=== PATIENT | female | born 1935 | race Caucasian/White ===

== ENCOUNTER 2024-11-27 19:51 | Emergency (ER) | payer SELFPAY ==
[2024-11-27 20:01] VITALS: BP 176/80
[2024-11-27 20:26] LABS: % Basophils 0.7 % (0-2); % Eosinophils 1.5 % (0-6); % Immature Granulocytes 0.3 % (0-0.5); % Lymphocytes 25.1 % (20.5-51.1); % Monocytes 7.8 % (1.7-9.3); % Neutrophils 64.6 % (42.2-75.2); Absolute Eosinophils 0.1 10^3/uL (0-0.7); Absolute Lymphocytes 1.5 10^3/uL (1.2-3.4); Absolute Monocytes 0.5 10^3/uL (0.1-0.6); Absolute Neutrophils 3.9 10^3/uL (1.4-6.5); Hematocrit 42.9 % (37.0-47.0); Hemoglobin 14.5 g/dL (12.0-16.0); Mean Corp Hgb Conc. 33.8 g/dL (33.0-37.0); Mean Corpuscular Hgb 30.5 pg (27.0-31.0); Mean Corpuscular Volume 90.1 fL (81.0-99.0); Mean Platelet Volume 11.1 fL (7.4-10.4); Nucleated Red Blood Cells % 0 %; Platelet Count 212 10^3/uL (130-400); Red Blood Cell Count 4.76 10^6/uL (4.20-5.40); White Blood Cell Count 6.1 10^3/uL (4.8-10.8)
[2024-11-27 20:41] LABS: COVID-19 Antigen Negative (Negative)
[2024-11-27 20:45] LABS: ALT (SGPT) 14 U/L (0-35); AST (SGOT) 19 U/L (14-36); Albumin 3.7 g/dl (3.5-5.0); Alkaline Phosphatase 81 U/L (38-126); Blood Urea Nitrogen 12 mg/dl (7-17); Calcium 9.1 mg/dl (8.4-10.2); Carbon Dioxide 28 mmol/L (22-30); Chloride 103 mmol/L (98-107); Glucose 116 mg/dl (70-99); Lipase 179 U/L (23-300); Potassium 3.8 mmol/L (3.5-5.1); Sodium 135 mmol/L (135-145); Total Protein 6.2 g/dl (6.3-8.2); eGFR > 60.00
[2024-11-27] MEDS: ZOFRAN ODT (ORALLY DISINTEGRATING) 4 MG PO (22:01)
[2024-11-27 23:28] VITALS: BP 177/64
[2024-11-27 23:32] VITALS: BMI 27.4
[2024-11-28] MEDS: NSS 500 IV (00:08)
--- NOTE | 2024-11-28 00:35 | ED.GENMED ---
History of Present Illness
General
Chief Complaint: Abdominal Symptoms
Source: patient and interior plant caretaker
Exam Limitations: dementia
Time Seen by Provider: 11/27/24 23:40
Nursing documentation reviewed up to this point in time: agreed with
History of Present Illness
History of Present Illness:
89-year-old female with a past medical history of hyperlipidemia, hypothyroidism,distant history of ovarian cancer, mild dementia/memory issues who presents to the emergency room from [facility] where she lives with a 24-hour chef kitchen manager; presents
for evaluation of nausea and vomiting. According to chef kitchen manager patient has chronic dizziness as well as chronic nausea. Today patient had 3 episodes of vomiting which is unusual and was referred to the ER to be evaluated. Patient says that she
feels mildly lightheaded and she has nausea. She says she has some mild epigastric discomfort. She has not had any diarrhea according to visiting nurse. She denies any fever. Patient denies any headache or neck pain. No reported recent URI
symptoms.
Review of Systems
Review of Systems
Other source history: other (Caregiver)
All Other Systems: ROS reviewed and negative except as documented in HPI and ROS
Constitutional: Denies fever
EENT: Denies sore throat or runny nose
Respiratory: Denies cough or trouble breathing
Cardiac: Denies chest pain
ABD/GI: Reports abdominal pain, nausea and vomiting; Denies diarrhea
: Denies flank pain
Musculoskeletal: Denies neck pain or back pain
Neurological: Reports dizzy; Denies headache
Phy Exam
Physical Exam
Physical Exam:
General: Awake, alert, pleasant oriented x 2 which is baseline according to caregiver; no acute distress
Head: Normocephalic, atraumatic
Eyes: Conjunctiva normal, EOMI without nystagmus
Throat: Airway intact, mucous membranes slightly dry
Neck: Trachea midline, supple without meningismus
Lungs: Clear to auscultation bilaterally, no wheezing, rales, rhonchi
Heart: Regular rate and rhythm, no murmurs, gallops, or rubs
Abd: Soft, non distended, minimally tender in the epigastrium, small reducible local hernia
Neuro: No gross deficits
Extremities: No edema in extremities, equal pulses in all extremities
Scores
Heart Failure Risk
Heart Failure Risk Score: Not Applicable
Heart Score for Chest Pain Patients
STEMI patient?: Not applicable
Withdrawal Assessment of Alcohol
Withdrawal Assessment Completed?: Not applicable
Course
Orders/Labs/Results
Orders:
Orders
11/27/24 20:15
COVID-19 Antigen Urgent
Source: Nasal Swab
Complete Blood Count/With Diff Urgent
Influenza A+B Rapid Molecular Urgent
OMARI Source: Nasal Swab
Specimen Description:
11/27/24 20:16
Comprehensive Metabolic Panel Urgent
Lipase Urgent
11/27/24 22:00
Ondansetron Orally Disint [Zofran Odt (Orally Disintegrating)] 4 mg .ROUTE .STK-MED ONE
11/27/24 22:01
Ondansetron Orally Disint [Zofran Odt (Orally Disintegrating)] 4 mg PO NOW STA
11/27/24 23:48
0.9% Sodium Chloride 500 ml [Nss] 500 ml IV BOLUS
11/28/24 00:36
Electrocardiogram (*1) Urgent
Reason for Study: Abdominal Pain
EKG- Treatment ONCE
11/28/24 00:37
Add On- LAB Urgent
Tests Added?: troponin
Urinalysis Reflex To Culture Urgent
Date Specimen was Collected: 11/28/24
Time Specimen was Collected: 00:38
11/28/24 01:00
CT Abd/pelvis W Iv Cont Urgent
Reason For Exam: abd pain, N/V
11/28/24 01:23
Troponin I Urgent
11/28/24 02:16
Straight cath- Treatment ONCE
11/28/24 02:20
Pantoprazole [Protonix IV] 40 mg IV NOW STA
Abnormal Lab Results
11/27/24 11/27/24
20:15 20:16
MPV 11.1 H fL
(7.4-10.4)
Glucose 116 H mg/dl
(70-99)
Total Protein 6.2 L g/dl
(6.3-8.2)
11/27/24 20:15
11/27/24 20:16
Vital Signs
Initial and Last Documented VS:
Initial Vital Signs
Temp Pulse Resp BP Pulse Ox
36.9 C 59 16 176/80 99
11/27/24 20:01 11/27/24 20:01 11/27/24 20:01 11/27/24 20:01 11/27/24 20:01
Last Documented Vital Signs
Temp Pulse Resp BP Pulse Ox
36.9 C 52 16 179/70 96
11/28/24 00:00 11/28/24 01:46 11/28/24 01:46 11/28/24 01:46 11/28/24 01:46
MDM/Problems Addressed
Differential Diagnosis Includes:
Gastritis, GERD, pancreatitis, cholelithiasis/cholecystitis, bowel obstruction, abdominal malignancy, viral syndrome, anginal equivalent, vertigo
MDM/Problems Addressed:
89-year-old female presents for evaluation of nausea and vomiting also has chronic mild dizziness. Hypertensive otherwise normal vitals. Physical exam as above. IV placed in triage and labs sent off including a CBC and a CMP which were
unremarkable, lipase normal. COVID and flu negative. Check an EKG and a troponin. Check CT of the abdomen pelvis. Provide fluids. She was given Zofran no additional vomiting since. Will monitor closely reassess after the above.
EKG shows sinus rhythm, troponin negative x 1 and with constant symptoms over 24 hours this is sufficient to rule out acute CA. CT abdomen pelvis shows no acute abnormalities to account for patient's symptoms. Clinical reassessment patient has not
had additional vomiting tolerating p.o. fluids here. Suspect likely gastritis. I think she is stable for discharge; can prescribe PPI and Zofran, follow-up with PCP as an outpatient�at this point no clear indication for admission to the hospital.
Spoke about return precautions all questions answered.
Chronic conditions affecting care:
Memory loss/dementia
Acute Exacerbation and/or Progression of Chronic Illness:
Acutely hypertensive
Acute Exacerbation and/or Progression of Chronic Illness: HTN
*Radiology
Radiology exam reviewed: radiology read reviewed
*Pulse Oximetry
Patient hypoxic: no
*Critical Care Note
Total Time (30-74mins, 75-104mins- exclusive of procedures): Not Applicable
Data Reviewed
Source: patient, interior plant caretaker and ambulance crew
ED Attending Note
-
Portions of this chart may have been created with voice recognition software.� Occasional wrong word or��sound alike� substitutions may have occurred due to the inherent limitations of voice recognition software.
Discharge Plan
Departure
Patient Disposition: Home (Routine Discharge)
Date of Disposition: 11/28/24
Time of Disposition: 02:25
Patient with high blood pressure during this ER visit?: Yes
Discharge Problem:
Nausea & vomiting
Instructions: [place] Diet, Nausea and Vomiting, Adult (DC)
Prescriptions:
New
ondansetron 4 mg tablet,disintegrating
4 mg PO TIDPRN PRN (Reason: nausea/vomiting) Qty: 10 0RF
pantoprazole 40 mg tablet,delayed release (DR/EC)
40 mg PO DAILY Qty: 14 0RF
No Action
latanoprost 0.005 % Drops
1 drp OPHTHALMIC (EYE) QPM
Rx Instructions:
both eyes
cyanocobalamin (vitamin B-12) 1,000 mcg Tablet Extended Release
1,000 mcg PO DAILY
simvastatin 40 mg Tablet
40 mg PO HS
levothyroxine [Synthroid] 25 mcg Tablet
25 mcg PO DAILY
dorzolamide-timolol 22.3-6.8 mg/mL Drops
1 drp OPHTHALMIC (EYE) DAILY
Rx Instructions:
both eyes
neomycin-polymyxin B-dexameth [Maxitrol] 3.5 mg/g-10,000 unit/g-0.1 % Ointment
1 applic OPHTHALMIC (EYE) DAILY PRN (Reason: per director outpatient services)
Rx Instructions:
per director outpatient services
escitalopram oxalate 10 mg Tablet
10 mg PO DAILY
PreserVision AREDS 2 Plus MV 200 mcg-15 mcg- 5 mg-1 mg Capsule
1 cap PO DAILY
Referrals:
Kavya Heath MD [Family Provider] - Follow up in 2-3 days
Activity Restrictions/Additional Instructions:
Thank you for visiting the Emergency Department at [facility].
1. Please schedule a follow up appointment as directed. Call first thing tomorrow morning to make an appointment.
2. If indicated, please take your medications as instructed and indicated on discharge paperwork.
3. If any of your symptoms do not improve, or persist, or become more severe within 6-12 hours, please return to the emergency department for further care.
4. Please return to the emergency department if you develop a headache, neck pain/stiffness, fever greater than 100.4F, chest pain, shortness of breath, persistent nausea, vomiting, slurred speech, difficulty walking, numbness/tingling, weakness,
signs of infection or any other symptoms that are worrisome to you.
Please call [phone] if you have any questions.
Interventions
Interventions:
*Risk Screen - Suicide Last Done: 11/27/24 20:01
*General Assessment Last Done: 11/27/24 20:01
*Neglect/Abuse Screening Last Done: 11/27/24 20:01
ED- Fall Risk Assessment Last Done: 11/28/24 00:15
*ED COVID-19 Vaccine History Last Done: 11/27/24 20:01
YF-Lnrakd-Fhjujrtpwa Assessment Last Done: 11/28/24 00:15
Discharge Date and Time
Print Language: TAJIK
[2024-11-28 01:46] VITALS: BP 179/70
[2024-11-28 02:22] LABS: Troponin I 0.013 ng/ml
[2024-11-28] MEDS: PROTONIX IV 40 MG IV (02:26)
[2024-11-28 02:36] VITALS: BP 163/68
[2024-11-28 03:38] LABS: Urine Albumin 2+ (Neg - Trace); Urine Bilirubin Negative (Negative); Urine Character Slightly Cloudy (Clear); Urine Glucose Negative (Negative); Urine Ketone Negative (Negative); Urine Leukocyte 2+ (Negative); Urine Nitrite Negative (Negative); Urine Occult Blood 4+ (Negative); Urine Urobilinogen Negative (Neg - 1+)
[2024-11-28 03:39] LABS: Urine Color Yellow
[2024-11-28 04:06] LABS: Urine Squamous Cell 16-20 /LPF (Few)
[2024-11-28 04:07] LABS: Urine Bacteria Moderate (Negative); Urine Red Blood Cell 26-30 /HPF (0-2); Urine White Cell 16-20 /HPF (0-5)
--- NOTE | 2024-11-28 10:26 | W.PN.UPDATE ---
Update Note
Progress Note Update
This patient came to the ER yesterday for abdominal pain. She had a CT scan of the abdomen and pelvis which revealed 2 concerning liver lesion in that were initally reported as benign hemangiomas. Recommend MRI for further evaluation. I did leave
message with her PCPs office and faxed report.
== END 2024-11-28 03:20 | disposition home or self-care (01) ==
LOC: EMR 19:51
PROVIDERS: Emergency Medicine; EMERGENCY PHYSICIAN Emergency Medicine; FAMILY PHYSICIAN Internal Medicine Geriatric Medicine
DX: R11.2 Nausea with vomiting, unspecified (principal); E78.5 Hyperlipidemia, unspecified; E03.9 Hypothyroidism, unspecified; F03.A0 Unspecified dementia, mild, without behavioral disturbance, psychotic disturbance, mood disturbance, and anxiety; I10 Essential (primary) hypertension; Z85.43 Personal history of malignant neoplasm of ovary
CPT/HCPCS: 99284; 96374; 96361; 74177; 80053; 81003; 81015; 83690; 84484; 85025; 87086; 87502; 87811; 93005; Q9967

== ENCOUNTER 2024-11-29 15:39 | Emergency (ER) | payer SELFPAY ==
[2024-11-29 15:52] VITALS: BP 165/78
--- NOTE | 2024-11-29 20:46 | ED.GENMED ---
History of Present Illness
<Samantha Hunt PA-C - Last Filed: 11/30/24 06:26>
General
Chief Complaint: Bowel Problem
Source: patient and records
Exam Limitations: none
Time Seen by Provider: 11/29/24 20:32
History of Present Illness
History of Present Illness:
89yoF with a history of hyperlipidemia, hypothyroidism, remote history of ovarian cancer, and mild dementia presenting via EMS for evaluation of possible constipation. Patient is a resident at [facility] and arrives with a caregiver. Patient
has been having intermittent vomiting over the past 3 days. She was seen in the ED yesterday for the symptoms. She had a CT abdomen performed which was negative for acute findings. There was apparent concern for continued vomiting although
patient states she has not vomited since yesterday. Last bowel movement was 2 days ago. Patient states she is constipated because she has not been eating much. Caregiver reports that she was complaining of dizziness in the waiting room. She denies
any abdominal pain, rectal pain, chest pain, shortness of breath, fevers, difficulty urinating.
Phy Exam
<Samantha Hunt PA-C - Last Filed: 11/30/24 06:26>
General Physical Exam
General Presentation: well appearing and no apparent distress
General age: appears stated age
General Skin: warm and dry
General Habitus: normal
General Mental: alert
ENT Exam
ENT Exam: normocephalic
Pulmonary Exam
Pulmonary Exam: no respiratory distress
Gastrointestinal Exam
Gastrointestinal Exam: non tender, soft and non distended
Stool: other (No hard stool palpated on digital rectal exam)
Neurological Exam
Neurological Exam: alert
Skin Exam
Skin Exam: normal color and warm/dry
Psychiatric Exam
Psychiatric Exam: normal mood/affect
Course
<Samantha Hunt PA-C - Last Filed: 11/30/24 06:26>
Orders/Labs/Results
Orders:
Orders
11/29/24 15:59
Obstruct Series W/PA Chest [CR Obstruct Series W/pa Chest] Urgent
Comment:
Reason For Exam: consrtipation
11/29/24 20:39
0.9% Sodium Chloride 500 ml [Nss] 500 ml IV BOLUS
Ondansetron Injectable [Zofran] 4 mg IV NOW STA
11/29/24 20:40
Electrocardiogram (*1) Urgent
Reason for Study: Vertigo / Dizzy
EKG- Treatment ONCE
11/29/24 21:49
Complete Blood Count/With Diff Urgent
Comprehensive Metabolic Panel Urgent
Magnesium Urgent
Comment: ADD ON
Troponin I Urgent
11/29/24 22:04
Add On- LAB Urgent
Tests Added?: magnesium
11/29/24 22:[address] Non Medication Order As Directed
Physician Order: PO challenge
Above order entered?: Yes
Abnormal Lab Results
11/29/24
21:49
MPV 11.0 H fL
(7.4-10.4)
Lymphocytes % 19.0 L %
(20.5-51.1)
Sodium 133 L mmol/L
(135-145)
Glucose 112 H mg/dl
(70-99)
Total Protein 6.2 L g/dl
(6.3-8.2)
11/29/24 21:49
11/29/24 21:49
Vital Signs
Initial and Last Documented VS:
Initial Vital Signs
Temp Pulse Resp BP Pulse Ox
98.3 F 69 16 165/78 97
11/29/24 15:52 11/29/24 15:52 11/29/24 15:52 11/29/24 15:52 11/29/24 15:52
Last Documented Vital Signs
Temp Pulse Resp BP Pulse Ox
98.3 F 65 17 172/69 100
11/29/24 15:52 11/29/24 22:08 11/29/24 22:04 11/29/24 22:03 11/29/24 22:08
<Talia Garcia PA-C - Last Filed: 11/29/24 23:06>
Orders/Labs/Results
Orders:
Orders
11/29/24 15:59
Obstruct Series W/PA Chest [CR Obstruct Series W/pa Chest] Urgent
Comment:
Reason For Exam: consrtipation
11/29/24 20:39
0.9% Sodium Chloride 500 ml [Nss] 500 ml IV BOLUS
Ondansetron Injectable [Zofran] 4 mg IV NOW STA
11/29/24 20:40
Electrocardiogram (*1) Urgent
Reason for Study: Vertigo / Dizzy
EKG- Treatment ONCE
11/29/24 21:49
Complete Blood Count/With Diff Urgent
Comprehensive Metabolic Panel Urgent
Magnesium Urgent
Comment: ADD ON
Troponin I Urgent
11/29/24 22:04
Add On- LAB Urgent
Tests Added?: magnesium
11/29/24 22:[address] Non Medication Order As Directed
Physician Order: PO challenge
Above order entered?: Yes
Abnormal Lab Results
11/29/24
21:49
MPV 11.0 H fL
(7.4-10.4)
Lymphocytes % 19.0 L %
(20.5-51.1)
Sodium 133 L mmol/L
(135-145)
Glucose 112 H mg/dl
(70-99)
Total Protein 6.2 L g/dl
(6.3-8.2)
11/29/24 21:49
11/29/24 21:49
Vital Signs
Initial and Last Documented VS:
Initial Vital Signs
Temp Pulse Resp BP Pulse Ox
98.3 F 69 16 165/78 97
11/29/24 15:52 11/29/24 15:52 11/29/24 15:52 11/29/24 15:52 11/29/24 15:52
Last Documented Vital Signs
Temp Pulse Resp BP Pulse Ox
98.3 F 65 17 172/69 100
11/29/24 15:52 11/29/24 22:08 11/29/24 22:04 11/29/24 22:03 11/29/24 22:08
<Samantha Hunt PA-C - Last Filed: 11/30/24 06:26>
MDM/Problems Addressed
Differential Diagnosis Includes:
89yoF here with intermittent vomiting x 3 days although has not vomited since yesterday. Triage note documents constipation although patient does not truly complain of this. Last BM 2 days ago and she states this is because she is not eating much.
She has no specific complaints on initial exam. Seen in the ED yesterday for the same and had a complete workup. Caregiver at bedside not very helpful as this is her first day with the patient. She is mildly hypertensive with otherwise normal
vitals. She is well appearing in no distress. Abdominal exam is benign. No hard stool palpated on rectal exam. Differential diagnosis includes but is not limited to: gastroenteritis, constipation, dehydration
Initial ED plan: KUB obtained in triage which shows mild constipation without evidence of obstruction. CT abdomen from yesterday reviewed. Will check CBC, CMP, troponin, and EKG. IV Zofran and fluid bolus.
Final assessment: EKG shows NSR with a QTc of 498. Patient received Zofran prior to EKG. Sodium 133. Remainder of labs unremarkable including normal magnesium, white count, renal function, and troponin. On reassessment, patient reports nausea but is
declining additional medications. Patient signed out to Kath Garcia PA-C prior to PO challenge. Final disposition pending.
<Samantha Hunt PA-C - Last Filed: 11/30/24 06:26>
*EKG
Interpreted by ED Provider?: Yes
EKG Intrepretation Date: 11/29/24
Heart Rate: 60
Rate: normal
Rhythm: sinus
[place]: normal axis
Interval: long QT (498)
QRS Pattern: normal QRS
Ischemia: no ischemia
<Talia Garcia PA-C - Last Filed: 11/29/24 23:06>
*Critical Care Note
Total Time (30-74mins, 75-104mins- exclusive of procedures): Not Applicable
<Talia Garcia PA-C - Last Filed: 11/29/24 23:06>
Update Note
Update Note:
Update 11:06 PM: Received patient in signout. Patient tolerated p.o. challenge without vomiting. Ambulating without difficulty. Patient will be discharged home.
ED Attending Note
<Samantha Hunt PA-C - Last Filed: 11/30/24 06:26>
-
Portions of this chart may have been created with voice recognition software.� Occasional wrong word or��sound alike� substitutions may have occurred due to the inherent limitations of voice recognition software.
Discharge Plan
Departure
Patient Disposition: Group Home/SNF
Discharge Problem:
Nausea and vomiting
Instructions: Nausea and Vomiting, Adult (DC)
Prescriptions:
No Action
latanoprost 0.005 % Drops
1 drp OPHTHALMIC (EYE) QPM
Rx Instructions:
both eyes
cyanocobalamin (vitamin B-12) 1,000 mcg Tablet Extended Release
1,000 mcg PO DAILY
simvastatin 40 mg Tablet
40 mg PO HS
levothyroxine [Synthroid] 25 mcg Tablet
25 mcg PO DAILY
dorzolamide-timolol 22.3-6.8 mg/mL Drops
1 drp OPHTHALMIC (EYE) DAILY
Rx Instructions:
both eyes
neomycin-polymyxin B-dexameth [Maxitrol] 3.5 mg/g-10,000 unit/g-0.1 % Ointment
1 applic OPHTHALMIC (EYE) DAILY PRN (Reason: per garbage man)
Rx Instructions:
per garbage man
escitalopram oxalate 10 mg Tablet
10 mg PO DAILY
PreserVision AREDS 2 Plus MV 200 mcg-15 mcg- 5 mg-1 mg Capsule
1 cap PO DAILY
ondansetron 4 mg tablet,disintegrating
4 mg PO TIDPRN PRN (Reason: nausea/vomiting) Qty: 10 0RF
pantoprazole 40 mg tablet,delayed release (DR/EC)
40 mg PO DAILY Qty: 14 0RF
Referrals:
Kavya Heath MD [Family Provider] -
Activity Restrictions/Additional Instructions:
Drink plenty of fluids and hydrate. Eat a bland diet (bananas, rice, applesauce, and toast).
Please follow-up with your family doctor. Return to the ER with any new or worsening symptoms.
Interventions
Interventions:
*Risk Screen - Suicide Last Done: 11/29/24 15:52
*General Assessment Last Done: 11/29/24 21:17
*Neglect/Abuse Screening Last Done: 11/29/24 15:52
*ED COVID-19 Vaccine History Last Done: 11/29/24 21:17
*Nursing Disposition Last Done: 11/30/24 00:00
JY-Fkmcdk-Dufcucbqlq Assessment Last Done: 11/29/24 21:17
Discharge Date and Time
Discharge Date/Time: 11/30/24 00:00
Print Language: HEBREW
[2024-11-29] MEDS: ZOFRAN 4 MG IV (21:50)
[2024-11-29] MEDS: NSS 500 IV (21:53)
[2024-11-29 22:03] VITALS: BP 172/69
[2024-11-29 22:04] LABS: % Basophils 0.3 % (0-2); % Eosinophils 0.1 % (0-6); % Immature Granulocytes 0.3 % (0-0.5); % Monocytes 6.9 % (1.7-9.3); % Neutrophils 73.4 % (42.2-75.2); Absolute Lymphocytes 1.5 10^3/uL (1.2-3.4); Absolute Monocytes 0.6 10^3/uL (0.1-0.6); Absolute Neutrophils 5.9 10^3/uL (1.4-6.5); Hematocrit 43.3 % (37.0-47.0); Hemoglobin 14.9 g/dL (12.0-16.0); Mean Corp Hgb Conc. 34.4 g/dL (33.0-37.0); Mean Corpuscular Hgb 30.4 pg (27.0-31.0); Mean Corpuscular Volume 88.4 fL (81.0-99.0); Nucleated Red Blood Cells % 0 %; Platelet Count 234 10^3/uL (130-400); Red Cell Dist. Width 12.9 % (11.5-14.5)
[2024-11-29 22:23] LABS: ALT (SGPT) 14 U/L (0-35); AST (SGOT) 19 U/L (14-36); Albumin 3.8 g/dl (3.5-5.0); Alkaline Phosphatase 79 U/L (38-126); Blood Urea Nitrogen 12 mg/dl (7-17); Calcium 9.2 mg/dl (8.4-10.2); Carbon Dioxide 27 mmol/L (22-30); Chloride 99 mmol/L (98-107); Glucose 112 mg/dl (70-99); Potassium 3.9 mmol/L (3.5-5.1); Sodium 133 mmol/L (135-145); Total Bilirubin 1.3 mg/dl (0.2-1.3); Total Protein 6.2 g/dl (6.3-8.2); eGFR > 60.00
[2024-11-29 22:26] LABS: Troponin I < 0.012 ng/ml
== END 2024-11-30 ==
LOC: EMR 15:39
PROVIDERS: Physician Assistant; EMERGENCY PHYSICIAN Student in an Organized Health Care Education/Training Program; FAMILY PHYSICIAN Internal Medicine Geriatric Medicine
DX: R11.2 Nausea with vomiting, unspecified (principal); E78.00 Pure hypercholesterolemia, unspecified; E03.9 Hypothyroidism, unspecified; F03.A0 Unspecified dementia, mild, without behavioral disturbance, psychotic disturbance, mood disturbance, and anxiety; Z85.43 Personal history of malignant neoplasm of ovary
CPT/HCPCS: 99283; 96374; 96361; 74022; 80053; 83735; 84484; 85025; 93005

== ENCOUNTER 2025-02-18 12:19 | Emergency (ER) | payer MEDICARE, SELFPAY ==
[2025-02-18 12:33] VITALS: BP 126/80
[2025-02-18 13:02] LABS: % Basophils 0.5 % (0-2); % Eosinophils 0.8 % (0-6); % Immature Granulocytes 0.2 % (0-0.5); % Lymphocytes 21.3 % (20.5-51.1); % Monocytes 6.9 % (1.7-9.3); % Neutrophils 70.3 % (42.2-75.2); Absolute Eosinophils 0.1 10^3/uL (0-0.7); Absolute Lymphocytes 1.4 10^3/uL (1.2-3.4); Absolute Monocytes 0.4 10^3/uL (0.1-0.6); Absolute Neutrophils 4.5 10^3/uL (1.4-6.5); Hematocrit 40.8 % (37.0-47.0); Hemoglobin 13.9 g/dL (12.0-16.0); Mean Corp Hgb Conc. 34.1 g/dL (33.0-37.0); Mean Corpuscular Hgb 30.9 pg (27.0-31.0); Mean Corpuscular Volume 90.7 fL (81.0-99.0); Mean Platelet Volume 10.9 fL (7.4-10.4); Nucleated Red Blood Cells % 0 %; Platelet Count 204 10^3/uL (130-400); Red Cell Dist. Width 13.5 % (11.5-14.5); White Blood Cell Count 6.4 10^3/uL (4.8-10.8)
[2025-02-18 13:28] LABS: ALT (SGPT) 14 U/L (0-35); AST (SGOT) 22 U/L (14-36); Albumin 4.3 g/dl (3.5-5.0); Alkaline Phosphatase 73 U/L (38-126); Blood Urea Nitrogen 13 mg/dl (7-17); Calcium 9.2 mg/dl (8.4-10.2); Carbon Dioxide 27 mmol/L (22-30); Chloride 106 mmol/L (98-107); Glucose 96 mg/dl (70-99); Potassium 4.4 mmol/L (3.5-5.1); Sodium 141 mmol/L (135-145); Total Bilirubin 0.9 mg/dl (0.2-1.3); Total Protein 6.8 g/dl (6.3-8.2); eGFR > 60.00
[2025-02-18 13:47] LABS: Urine Albumin 2+ (Neg - Trace); Urine Bilirubin Negative (Negative); Urine Character Clear (Clear); Urine Color Yellow; Urine Glucose Negative (Negative); Urine Ketone 3+ (Negative); Urine Leukocyte 1+ (Negative); Urine Nitrite Negative (Negative); Urine Occult Blood 4+ (Negative); Urine Specific Gravity 1.025 (<1.030); Urine Urobilinogen Negative (Neg - 1+)
--- NOTE | 2025-02-18 14:25 | ED.GENMED ---
History of Present Illness
General
Chief Complaint: Change in Mental Status
Source: patient and [facility] records
Time Seen by Provider: 02/18/25 14:07
History of Present Illness
History of Present Illness:
89-year-old female brought to the emergency room by ambulance from [facility]. Patient was refusing her medications and was agitated. This prompted her to be sent to the emergency room for evaluation. Patient is calm here but states
that she believes that her friend dumped her at a new facility and she cannot understand why. She does not like it there. She offers no medical complaints.
Phy Exam
Physical Exam
Physical Exam:
General: Awake, Alert, Oriented X person and time. She understands she is at a hospital. no acute distress.
Vitals: unremarkable
Head: Atraumatic
Eyes: Pupils equal, EOMI
Throat: Airway intact, no exudates
Neck: Trachea midline
Lungs: Clear and equal b/l
Heart: Regular rate, no murmurs
Abd: Soft, Nontender, No pulsatile mass
Neuro: Nonfocal
Skin: Warm, dry, no rash
Extremities: pulses equal b/l, no edema
Course
Orders/Labs/Results
Orders:
Orders
02/18/25 12:56
Complete Blood Count/With Diff Urgent
Comprehensive Metabolic Panel Urgent
02/18/25 13:27
Urinalysis Reflex To Culture Urgent
Date Specimen was Collected: 02/18/25
Time Specimen was Collected: 12:43
Urine Microscopic Reflex Cult Urgent
Urine Culture Urgent
OMARI Source: U
Specimen Description:
Date Specimen was Collected: 02/18/25
Time Specimen was Collected: 12:43
02/18/25 14:24
Escitalopram Oxalate [Lexapro] 5 mg PO NOW STA
02/18/25 14:25
CT Head W/o Iv Contrast Urgent
Comment:
Reason For Exam: agitation
02/18/25 17:22
Risperidone [Risperdal] 0.5 mg PO NOW STA
Abnormal Lab Results
02/18/25 02/18/25
12:56 13:27
MPV 10.9 H fL
(7.4-10.4)
Urine Ketones 3+ A
(Negative)
Ur Occult Blood Reflex 4+ A
(Negative)
Leukocyte Esterase Rfl 1+ A
(Negative)
Urine RBC 50-60 A /HPF
(0-2)
Urine Albumin (Reflex) 2+ A
(Neg - Trace)
02/18/25 12:56
02/18/25 12:56
Vital Signs
Initial and Last Documented VS:
Initial Vital Signs
Temp Pulse Resp BP Pulse Ox
98.4 F 72 18 126/80 96
02/18/25 12:33 02/18/25 12:33 02/18/25 12:33 02/18/25 12:33 02/18/25 12:33
Last Documented Vital Signs
Temp Pulse Resp BP Pulse Ox
98.4 F 72 18 126/80 96
02/18/25 12:33 02/18/25 12:33 02/18/25 12:33 02/18/25 12:33 02/18/25 12:33
MDM/Problems Addressed
Differential Diagnosis Includes:
Dementia with agitation, UTI, electrolyte abnormality
MDM/Problems Addressed:
Patient presents with essentially agitation at her facility. Here she is calm. She took medications for us here. There is no physical exam findings or lab findings to suggest an unstable problem. Patient a CT of her head which showed the
presence of a relatively large meningioma. I discussed this finding with Dr. Tasia Zhang is on-call for neurosurgery. Given the patient's age and diagnosis of dementia she is not a surgical candidate. I inquired about steroids as they describe some
vasogenic edema however he did not recommend this be started. Patient can follow-up as an outpatient.
*Radiology
Radiology exam reviewed: radiology read reviewed
*Pulse Oximetry
Patient hypoxic: no
*Critical Care Note
Total Time (30-74mins, 75-104mins- exclusive of procedures): Not Applicable
ED Attending Note
-
Portions of this chart may have been created with voice recognition software.� Occasional wrong word or��sound alike� substitutions may have occurred due to the inherent limitations of voice recognition software.
Discharge Plan
Departure
Patient Disposition: Longterm/SNF
Date of Disposition: 02/18/25
Time of Disposition: 17:07
Condition: Good
Discharge Problem:
Dementia with agitation, Meningioma
Prescriptions:
New
risperidone [Risperdal] 0.5 mg tablet
0.5 mg PO HS Qty: 10 0RF
No Action
latanoprost 0.005 % Drops
1 drp OPHTHALMIC (EYE) QPM
Rx Instructions:
both eyes
cyanocobalamin (vitamin B-12) 1,000 mcg Tablet Extended Release
1,000 mcg PO DAILY
simvastatin 40 mg Tablet
40 mg PO HS
levothyroxine [Synthroid] 25 mcg Tablet
25 mcg PO DAILY
dorzolamide-timolol 22.3-6.8 mg/mL Drops
1 drp OPHTHALMIC (EYE) DAILY
Rx Instructions:
both eyes
neomycin-polymyxin B-dexameth [Maxitrol] 3.5 mg/g-10,000 unit/g-0.1 % Ointment
1 applic OPHTHALMIC (EYE) DAILY PRN (Reason: per svp operations)
Rx Instructions:
per [employer]
escitalopram oxalate 10 mg Tablet
10 mg PO DAILY
PreserVision AREDS 2 Plus MV 200 mcg-15 mcg- 5 mg-1 mg Capsule
1 cap PO DAILY
ondansetron 4 mg tablet,disintegrating
4 mg PO TIDPRN PRN (Reason: nausea/vomiting) Qty: 10 0RF
pantoprazole 40 mg tablet,delayed release (DR/EC)
40 mg PO DAILY Qty: 14 0RF
Referrals:
Alina Moreno, DO [Family Provider] -
Interventions
Interventions:
*Risk Screen - Suicide Last Done: 02/18/25 12:33
*General Assessment Last Done: 02/18/25 12:33
*Neglect/Abuse Screening Last Done: 02/18/25 12:42
*ED- Fall Risk Assessment Last Done: 02/18/25 17:51
*ED COVID-19 Vaccine History Last Done: 02/18/25 17:51
*Nursing Disposition Last Done: 02/18/25 17:51
ED- Neurological Assessment Last Done: 02/18/25 17:21
Discharge Date and Time
Discharge Date/Time: 02/18/25 17:52
Print Language: KAZAKH
[2025-02-18 14:39] LABS: Urine Mucus Many; Urine Squamous Cell 0-2 /LPF (Few); Urine Urothelial Cell 0-2 /LPF (FEW)
[2025-02-18 14:41] LABS: Urine Amorphous Seen; Urine Red Blood Cell 50-60 /HPF (0-2)
[2025-02-18 14:42] LABS: Urine White Cell 0-2 /HPF (0-5)
[2025-02-18] MEDS: LEXAPRO 5 MG PO (15:09)
== END 2025-02-18 17:52 ==
LOC: EMR 12:19
PROVIDERS: EMERGENCY PHYSICIAN Emergency Medicine; FAMILY PHYSICIAN Internal Medicine
DX: F03.911 Unspecified dementia, unspecified severity, with agitation (principal); D32.9 Benign neoplasm of meninges, unspecified
CPT/HCPCS: 99284; 70450; 80053; 81003; 81015; 85025; 87086

== ENCOUNTER 2025-02-28 20:34 | Emergency (ER) | payer MEDICARE, SELFPAY ==
[2025-02-28 20:46] VITALS: BP 158/69
--- NOTE | 2025-02-28 23:20 | ED.GENMED ---
History of Present Illness
General
Chief Complaint: Crisis Evaluation
Source: patient and police
Time Seen by Provider: 02/28/25 22:58
History of Present Illness
History of Present Illness:
89-year-old female brought to the emergency room via ambulance after she was found with a plastic bag over her head and with the staff described as a suicide attempt. Patient was recently admitted to a custodial/memory care unit. She is unhappy
there. Today she was expressing her dismay about being there and ultimately ended up in a barricade situation. She placed a plastic bag over her head per police. No loss of consciousness with this event. Patient was seen here by myself 10 days
ago. At that time I had discussed the patient's presentation with her relative Pal[place]. Patient has evidently had a long history of psychiatric illness and has alienated family members. Evidently a friend or acquaintance who the patient was living
with ultimately had her placed in this facility. Currently the patient offers no complaints other than not wanting to live at the facility she now lives at. Patient denies this being an actual suicide attempt but states she was just trying to
scare the staff and make appointment.
Phy Exam
Physical Exam
Physical Exam:
General: Awake, Alert, Oriented X3. No acute distress.
Vitals: unremarkable
Head: Atraumatic
Eyes: Pupils equal, EOMI
Throat: Airway intact, no exudates
Neck: Trachea midline
Lungs: Clear and equal b/l
Heart: Regular rate, no murmurs
Abd: Soft, Nontender, No pulsatile mass
Neuro: Nonfocal
Skin: Warm, dry, no rash
Extremities: pulses equal b/l, no edema
Course
Orders/Labs/Results
Orders:
Orders
02/28/25 20:45
Crisis Consult Urgent
Reason for Consult: tried to commit suicide
02/28/25 23:22
Basic Metabolic Panel Urgent
Complete Blood Count/With Diff Urgent
02/28/25 23:52
Risperidone [Risperdal] 1 mg PO NOW STA
02/28/25 23:55
Dorzolamide HCl [Trusopt 2% Ophthalmic Solution] See Dose Instructions OPHTH NOW STA
Timolol Maleate 0.5% [Timoptic 0.5% Ophthalmic Solution] See Dose Instructions OPHTH NOW STA
Abnormal Lab Results
02/28/25
23:22
MCHC 31.8 L g/dL
(33.0-37.0)
MPV 11.1 H fL
(7.4-10.4)
02/28/25 23:22
Vital Signs
Initial and Last Documented VS:
Initial Vital Signs
Pulse Resp BP Pulse Ox
64 18 158/69 97
02/28/25 20:46 02/28/25 20:46 02/28/25 20:46 02/28/25 20:46
Last Documented Vital Signs
Pulse Resp BP Pulse Ox
64 18 158/69 97
02/28/25 20:46 02/28/25 20:46 02/28/25 20:46 02/28/25 20:46
ED Attending Note
-
Portions of this chart may have been created with voice recognition software.� Occasional wrong word or��sound alike� substitutions may have occurred due to the inherent limitations of voice recognition software.
Discharge Plan
Departure
Patient Disposition: Psych Facility
Date of Disposition: 02/28/25
Time of Disposition: 23:59
Patient Status:: 302
Condition: Fair
Discharge Problem:
Depression, Suicide attempt
Prescriptions:
No Action
latanoprost 0.005 % Drops
1 drp OPHTHALMIC (EYE) QPM
Rx Instructions:
both eyes
cyanocobalamin (vitamin B-12) 1,000 mcg Tablet Extended Release
1,000 mcg PO DAILY
simvastatin 40 mg Tablet
40 mg PO HS
levothyroxine [Synthroid] 25 mcg Tablet
25 mcg PO DAILY
dorzolamide-timolol 22.3-6.8 mg/mL Drops
1 drp OPHTHALMIC (EYE) DAILY
Rx Instructions:
both eyes
neomycin-polymyxin B-dexameth [Maxitrol] 3.5 mg/g-10,000 unit/g-0.1 % Ointment
1 applic OPHTHALMIC (EYE) DAILY PRN (Reason: per gem carver)
Rx Instructions:
per gem carver
escitalopram oxalate 10 mg Tablet
10 mg PO DAILY
PreserVision AREDS 2 Plus MV 200 mcg-15 mcg- 5 mg-1 mg Capsule
1 cap PO DAILY
ondansetron 4 mg tablet,disintegrating
4 mg PO TIDPRN PRN (Reason: nausea/vomiting) Qty: 10 0RF
pantoprazole 40 mg tablet,delayed release (DR/EC)
40 mg PO DAILY Qty: 14 0RF
risperidone [Risperdal] 0.5 mg tablet
0.5 mg PO HS Qty: 10 0RF
Referrals:
Alina Moreno DO [Family Provider, Internal Medicine]
Interventions
Interventions:
*Risk Screen - Suicide Last Done: 02/28/25 20:38
*General Assessment Last Done: 02/28/25 20:38
*Neglect/Abuse Screening Last Done: 02/28/25 20:38
*ED- Fall Risk Assessment Last Done: 02/28/25 20:38
*ED COVID-19 Vaccine History Last Done: 02/28/25 20:38
ED-Psychological Assessment Last Done: 02/28/25 20:38
Discharge Date and Time
Print Language: STATELESS
[2025-02-28 23:54] LABS: % Basophils 0.6 % (0-2); % Eosinophils 2.4 % (0-6); % Immature Granulocytes 0.2 % (0-0.5); % Lymphocytes 33.3 % (20.5-51.1); % Monocytes 8.4 % (1.7-9.3); % Neutrophils 55.1 % (42.2-75.2); Absolute Eosinophils 0.2 10^3/uL (0-0.7); Absolute Lymphocytes 2.1 10^3/uL (1.2-3.4); Absolute Monocytes 0.5 10^3/uL (0.1-0.6); Absolute Neutrophils 3.5 10^3/uL (1.4-6.5); Hematocrit 40.3 % (37.0-47.0); Hemoglobin 12.8 g/dL (12.0-16.0); Mean Corp Hgb Conc. 31.8 g/dL (33.0-37.0); Mean Corpuscular Hgb 30.1 pg (27.0-31.0); Mean Corpuscular Volume 94.8 fL (81.0-99.0); Mean Platelet Volume 11.1 fL (7.4-10.4); Nucleated Red Blood Cells % 0 %; Platelet Count 180 10^3/uL (130-400); Red Blood Cell Count 4.25 10^6/uL (4.20-5.40); Red Cell Dist. Width 13.4 % (11.5-14.5); White Blood Cell Count 6.3 10^3/uL (4.8-10.8)
[2025-03-01 00:11] LABS: Blood Urea Nitrogen 17 mg/dl (7-17); Calcium 8.8 mg/dl (8.4-10.2); Carbon Dioxide 29 mmol/L (22-30); Chloride 110 mmol/L (98-107); Glucose 100 mg/dl (70-99); Potassium 4.1 mmol/L (3.5-5.1); Sodium 145 mmol/L (135-145); eGFR > 60.00
[2025-03-01] MEDS: ZYPREXA 5 MG IM (00:29)
[2025-03-01] MEDS: TRUSOPT 2% OPHTHALMIC SOLUTION 1 DROP BOTH EYES (00:45)
[2025-03-01] MEDS: TIMOPTIC 0.5% OPHTHALMIC SOLUTION 1 DROP BOTH EYES (00:45)
[2025-03-01 07:30] VITALS: BP 141/82; BMI 31.5
== END 2025-03-01 10:59 ==
LOC: EMR 20:34
PROVIDERS: EMERGENCY PHYSICIAN Emergency Medicine; FAMILY PHYSICIAN Internal Medicine
DX: F32.A Depression, unspecified (principal); T14.91XA Suicide attempt, initial encounter; X83.8XXA Intentional self-harm by other specified means, initial encounter
CPT/HCPCS: 99285; 80048; 85025; J2358